=== PATIENT | female | born 2000 | race African-American/Black ===

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

== ENCOUNTER 2020-01-10 15:00 | Emergency (ER) | payer SELFPAY ==
[~2020-01-10] VITALS: Ht 170.2 cm; Wt 57.0 kg
[2020-01-10] MEDS ORDERED: IBUPROFEN 600MG TABLET PO ONE (16:00)
[2020-01-10 17:10] LABS: BASOPHILS % 0.7 % (0.0-2.0); EOSINOPHILS % 2.3 % (0.0-5.0); HEMATOCRIT. 36.2 % (36.0-48.0); HEMOGLOBIN. 11.5 g/dL (12.0-16.0); LYMPHOCYTES % 21.7 % (20.0-50.0); MEAN CORPUSCULAR HEMOGLOBIN 21.6 pg (28.0-32.0); MEAN PLATELET VOLUME 8.1 fl (7.4-10.4); MONOCYTES % 14.4 % (2.0-8.0); NEUTROPHILS % 60.9 % (40.0-76.0); PLATELET 313 x1000/uL (130-400); RED BLOOD CELL COUNT 5.32 mill/uL (4.2-5.4); RED CELL DISTRIBUTION WIDTH 16.5 % (11.6-14.6)
[2020-01-10 17:17] LABS: CHLORIDE 108 mEq/L (98-107)
[2020-01-10 17:33] LABS: HCG SCREEN NEGATIVE
[2020-01-10 17:56] LABS: PLATELET ESTIMATE NORMAL
[2020-01-10] MEDS ORDERED: POTASSIUM CHLORIDE 20MEQ TABLET SR PO ONE (18:00)
[2020-01-10 18:39] VITALS: BP 122/78
== END 2020-01-10 18:43 | disposition home or self-care (01) ==
LOC: ER 15:00
DX: R55 Syncope and collapse (principal)
CPT/HCPCS: 36415; 80048; 81025; 84703; 85025; 93005; 99284

== ENCOUNTER 2020-12-14 16:48 | Emergency (ER) | payer MEDICAID ==
[~2020-12-14] VITALS: Ht 165.1 cm; Wt 50.0 kg
[2020-12-14] MEDS ORDERED: LEVETIRACETAM 1000MG PREMIX 100 ML IV ONE (18:00)
[2020-12-14 18:20] LABS: HEMOGLOBIN. 12.3 g/dL (12.0-16.0); MEAN CORPUSCULAR HEMOGLOBIN 21.8 pg (28.0-32.0); MEAN CORPUSCULAR VOLUME 67.8 fL (81.0-99.0); MEAN PLATELET VOLUME 7.8 fl (7.4-10.4); PLATELET 304 x1000/uL (130-400); RED BLOOD CELL COUNT 5.61 mill/uL (4.2-5.4); RED CELL DISTRIBUTION WIDTH 16.2 % (11.6-14.6)
[2020-12-14 18:27] LABS: CHLORIDE 109 mEq/L (98-107)
[2020-12-14 19:06] LABS: PLATELET ESTIMATE NORMAL
[2020-12-14 21:01] VITALS: BP 101/67
== END 2020-12-14 21:14 | disposition home or self-care (01) ==
LOC: ER 16:48
DX: G40.909 Epilepsy, unspecified, not intractable, without status epilepticus (principal)
CPT/HCPCS: 36415; 80053; 85025; 96365; 96366; 99284; J1953

== ENCOUNTER 2021-11-28 18:32 | Emergency (ER) | payer SELFPAY ==
[~2021-11-28] VITALS: Ht 165.1 cm; Wt 55.0 kg
[2021-11-28 18:35] VITALS: BP 121/84
== END 2021-11-28 18:55 | disposition home or self-care (01) ==
LOC: ER 18:32
DX: Z00.00 Encounter for general adult medical examination without abnormal findings (principal); R56.9 Unspecified convulsions
CPT/HCPCS: 99283

== ENCOUNTER 2021-12-13 06:02 | Emergency (ER) | payer SELFPAY ==
[~2021-12-13] VITALS: Ht 167.6 cm; Wt 61.0 kg
[2021-12-13 07:01] LABS: HEMATOCRIT. 35.9 % (36.0-48.0); HEMOGLOBIN. 11.5 g/dL (12.0-16.0); MEAN CORPUSCULAR HEMOGLOBIN 21.5 pg (28.0-32.0); MEAN CORPUSCULAR VOLUME 67.2 fL (81.0-99.0); MEAN PLATELET VOLUME 8.4 fl (7.4-10.4); PLATELET 346 x1000/uL (130-400); RED BLOOD CELL COUNT 5.35 mill/uL (4.2-5.4); RED CELL DISTRIBUTION WIDTH 16.4 % (11.6-14.6)
[2021-12-13 07:14] LABS: CHLORIDE 105 mEq/L (98-107)
[2021-12-13 07:24] LABS: ETHANOL BLOOD < 10 mg/dL
[2021-12-13 07:30] VITALS: BP 98/61
[2021-12-13 08:26] LABS: PLATELET ESTIMATE NORMAL
[2021-12-13 09:18] LABS: CLARITY URINE CLEAR (CLEAR); COLOR URINE DARK YELLOW (YELLOW); KETONES URINE TRACE (NEGATIVE); LEUKOCYTE ESTERASE URINE NEGATIVE (NEGATIVE); NITRITE URINE NEGATIVE (NEGATIVE); OCCULT BLOOD URINE NEGATIVE (NEGATIVE); PROTEIN URINE 1+ (NEGATIVE); SPECIFIC GRAVITY URINE 1.027 (1.005-1.030)
[2021-12-13 10:00] LABS: *AMPHETAMINES SCREEN URINE NEGATIVE (NEGATIVE); *BARBITURATES SCREEN URINE NEGATIVE (NEGATIVE); *BENZODIAZEPINES SCREEN URINE NEGATIVE (NEGATIVE); *COCAINE SCREEN URINE NEGATIVE (NEGATIVE); CANNABINOID URINE SCREEN NEGATIVE (NEGATIVE); METHADONE URINE SCREEN NEGATIVE (NEGATIVE); OPIATES URINE SCREEN NEGATIVE (NEGATIVE); PHENCYCLIDINE URINE SCREEN NEGATIVE (NEGATIVE)
== END 2021-12-13 09:20 | disposition left against medical advice (07) ==
LOC: ER 06:02
DX: R45.851 Suicidal ideations (principal); Z63.79 Other stressful life events affecting family and household; Z62.820 Parent-biological child conflict; D64.9 Anemia, unspecified
CPT/HCPCS: 36415; 80053; 80305; 80320; 81003; 85025; 99283; G0480